=== PATIENT | male | born 1990 | race Caucasian/White ===

== ENCOUNTER → 2016-11-22 | Outpatient (CLI) | payer OTHER ==
[2016-11-22 18:27] LABS: BASO % 0.8 %; BASO ABS # 0.08 K/uL (0-0.2); COMPLETE YES; EOS % 21.3 %; HEMATOCRIT 46.1 % (42-52); IG% 0.1 %; LYMPH % 20.6 %; LYMPH ABS # 1.98 K/uL (1.2-3.4); MEAN CELL VOLUME 94.5 fL (80-100); MEAN CORPUSCULAR HEMOGLOBIN 32.8 pg (25-34); MEAN CORPUSCULAR HGB CONC 34.7 g/dl (32-36); MEAN PLATELET VOLUME 10.4 fL (7.4-10.4); NEUT % 49.2 %; PLATELET COUNT 250 K/uL (130-400); RED BLOOD COUNT 4.88 M/uL (4.7-6.1)
[2016-11-22 19:04] LABS: ALB/GLOB RATIO 1.3 (0.9-2); ALKALINE PHOSPHATASE 85 U/L (45-117); ALT/SGPT 41 U/L (12-78); AMYLASE 95 U/L (25-115); AST/SGOT 26 U/L (15-37); BLOOD UREA NITROGEN 35 mg/dl (7-18); BUN/CREATININE RATIO 29.3 (10-20); CARBON DIOXIDE 29 mmol/L (21-32); CHLORIDE 103 mmol/L (98-107); GLUCOSE 73 mg/dl (70-99); POTASSIUM 4.1 mmol/L (3.5-5.1); SODIUM 140 mmol/L (136-145)
== END | disposition home or self-care (01) ==
LOC: C.LABSPEC 15:00
PROVIDERS: ATTEND Internal Medicine
DX: R10.13 Epigastric pain (principal)

== ENCOUNTER 2017-10-04 16:06 | Emergency (ER) | payer OTHER ==
[~2017-10-04] VITALS: Ht 182.9 cm; Wt 89.2 kg
[2017-10-04 16:10] VITALS: TEMP 36.3; Ht 182.9 cm; Wt 89.2 kg
[2017-10-04 16:22] VITALS: O2SAT 97
[2017-10-04] MEDS ORDERED: DiphenhydrAMINE HCL 50 MG/ML VIAL IV STA (16:38)
[2017-10-04] MEDS ORDERED: FAMOTIDINE 20MG/5ML IV PUSH IV STA (16:38)
[2017-10-04] MEDS ORDERED: SODIUM CHLORIDE 0.9% 1000ML 1,000 ML IV STA ×2 (16:38→17:39)
[2017-10-04] MEDS ORDERED: MULT-506 PO (16:54)
[2017-10-04 16:55] LABS: BASO % 0.4 %; BASO ABS # 0.08 K/uL (0-0.2); EOS % 2.1 %; EOS ABS # 0.42 K/uL (0-0.5); HEMATOCRIT 47.3 % (42-52); HEMOGLOBIN 16.2 g/dL (14.0-18.0); IG# 0.05 K/uL (0.00-0.02); LYMPH ABS # 2.86 K/uL (1.2-3.4); MEAN CELL VOLUME 96.9 fL (80-100); MEAN CORPUSCULAR HEMOGLOBIN 33.2 pg (25-34); MEAN CORPUSCULAR HGB CONC 34.2 g/dl (32-36); MEAN PLATELET VOLUME 10.2 fL (7.4-10.4); MONO % 7.5 %; MONO ABS # 1.54 K/uL (0.11-0.59); NEUT % 75.8 %; NEUT ABS # 15.49 K/uL (1.4-6.5); PLATELET COUNT 271 K/uL (130-400); RED CELL DISTRIBUTION WIDTH CV 13.6 % (11.5-14.5); RED CELL DISTRIBUTION WIDTH SD 48.5 fL (36.4-46.3); WHITE BLOOD COUNT 20.44 K/uL (4.8-10.8)
[2017-10-04 17:02] LABS: CALCIUM 8.8 mg/dl (8.5-10.1); CREATININE 1.27 mg/dl (0.60-1.40); POTASSIUM 3.8 mmol/L (3.5-5.1)
--- NOTE | 2017-10-04 17:05 | DIAGNOSTIC IMAGING REPORT ---
CHEST 2 VIEWS ROUTINE CLINICAL HISTORY: chest tightness, allergic reaction COMPARISON STUDY: No previous studies for comparison. FINDINGS: The cardiac and mediastinal contours are normal. There is no evidence of focal pulmonary consolidation. There is no evidence of failure. No pleural effusions are visualized.[ IMPRESSION: No active disease in the chest. Electronically signed by: Joshua Camacho M.D. 10/04/2017 5:04 PM Dictated Date/Time: 10/04/2017 5:03 PM
--- NOTE | 2017-10-04 17:11 | EMERGENCY ROOM VISIT NOTE ---
ED Visit Note First contact with patient: 16:19 CHIEF COMPLAINT: Allergic reaction HISTORY OF PRESENTING ILLNESS: This is a 27-year-old male who presents to the emergency department with complaint of an allergic reaction today. Patient states that he went for a 9 mile run earlier today outside, states he felt fine during the run and immediately after the run. He states while he was driving home that he started to feel some tightness in his chest. When he got home, he vomited 1 and the tightness in his chest resolved. He states that his vomit looked black with bits of food in it. He does note that he ate a hamburger late last night. He states that after he got out of the shower, he noticed hives all over his chest. He reports a bad allergic reaction with hives in the past, for which he was given an Epi-Pen, and he felt this reaction was similar, so he gave himself his EpiPen injection. He states that his heart was racing and he felt nauseated afterward, but his hives have not improved. He denies any symptoms of facial or lip swelling, tongue swelling, tightness in his throat , difficulty breathing, wheezing, dizziness or syncope. He currently denies any chest pain or SOB, and states "I pretty much feel back to normal, but I wanted to get checked out." He denies any new foods, lotions, detergents, medications, or other exposures. REVIEW OF SYSTEMS: A complete 10 point review of systems was reviewed with the patient with pertinent positives and negatives as per history of present illness. All else were negative. PAST MEDICAL HISTORY: No significant past medical or surgical history. UTD on immunizations. SOCIAL HISTORY: Lives at home. Denies tobacco use, reports occasional alcohol use, denies illicit drug use. ALLERGIES: No known allergies. PHYSICAL EXAM: CONSTITUTIONAL: Pleasant and cooperative. No acute distress. Well appearing and well nourished. HEENT: Normocephalic, atraumatic. PERRL, EOMI, normal conjunctiva bilaterally. TMs normal. No facial or lip swelling. No tongue swelling. Pharynx normal, no pharyngeal edema. Patent airway. Moist mucous membranes. NECK: Supple, full active range of motion without discomfort. No cervical adenopathy. RESPIRATORY: Clear to auscultation bilaterally with no wheezing, crackles, rhonchi or stridor. Equal expansion bilaterally. CARDIOVASCULAR: Regular rate and rhythm with no murmurs, rubs or gallops. Normal peripheral perfusion. No edema. GASTROINTESTINAL: Soft, nontender, nondistended. No palpable masses or HSM. Bowel sounds present in all quadrants. MUSCULOSKELETAL: Full range of motion of all joints without discomfort. INTEGUMENTARY: There is a red rash on the anterior chest and abdomen, some lesions appear urticarial, some appear more consistent with insect bite. Nontender to palpation. Blanching. No pustules or discharge noted. No other significant dermatologic conditions noted. NEUROLOGIC: Alert and oriented X 4 with normal affect. Cranial nerves II-XII grossly intact. No focal neurologic deficits noted. Normal strength and sensation in all 4 extremities. Normal speech. Normal gait observed. ED COURSE AND MEDICAL DECISION MAKING: CC: Patient presenting with complaint of allergic reaction DIFFERENTIAL DIAGNOSIS: Includes, but not limited to allergic reaction, insect bites, rash, folliculitis, gastroenteritis, gastritis, peptic ulcer disease, GERD, among others. INTERPRETATION OF LABS: Leukocytosis with left shift, no anemia, no significant electrolyte abnormalities, normal renal function. IMAGING: CHEST 2 VIEWS ROUTINE CLINICAL HISTORY: chest tightness, allergic reaction COMPARISON STUDY: No previous studies for comparison. FINDINGS: The cardiac and mediastinal contours are normal. There is no evidence of focal pulmonary consolidation. There is no evidence of failure. No pleural effusions are visualized. IMPRESSION: No active disease in the chest. EKG: Shows normal sinus rhythm with sinus arrhythmia, no acute ischemic changes by my interpretation. No previous EKGs available for comparison. MEDICATION RECONCILIATION: I attest that I have personally reviewed the patient 's current medication list. INITIAL VITAL SIGNS REVIEW: I reviewed the patient's initial vital signs and interpret them as follows: T: Afebrile; BP: Normotensive; HR: Within normal limits; RR: Tachypneic; Pulse Ox: Within normal limits on room air. Blood pressure screening: The patient was found to have normal blood pressure on screening and does not require follow-up for repeat blood pressure check. SUMMARY: Patient was evaluated at bedside, history and physical exam performed. Patient is alert and oriented, in no acute distress and with no complaints, resting calmly in the stretcher. Patient is noted to have red rash on chest, multiple lesions appear consistent with insect bites. EKG reviewed at bedside, showing sinus rhythm with no acute ischemic changes. Orders were placed at bedside for labs, IV fluid bolus, IV Benadryl and Pepcid, and chest x-ray to evaluate for cardiopulmonary disease. Patient discussed with Dr. Greene, who agrees with my assessment and plan. Labs and imaging reviewed as above, notable for marketed leukocytosis, which I suspect may be secondary to stress response given the injection of epinephrine. I discussed findings with Dr. Greene, he recommended aggressively hydrating the patient with a second liter of normal saline, and repeat the CBC. On recheck, CBC shows significant improvement in leukocytosis after hydration. Patient reassessed multiple times throughout ED stay, he continues to feel well. The rash on his chest and abdomen appears to be improved after receiving the Benadryl and Pepcid. He has not had any further nausea or vomiting and is tolerating oral fluids without difficulty. Patient was updated on all results and plan for discharge, he was encouraged to follow closely with his primary care provider for further evaluation. The patient was provided with education regarding the appropriate use of the EpiPen, and cautioned against using this inappropriately. Patient was also given strict return precautions should his symptoms worsen, he verbalized understanding. Patient was discharged home in stable condition and ambulatory. Current/Historical Medications Scheduled Multivitamin (Multivitamin), 1 TAB PO DAILY Allergies Coded Allergies: No Known Allergies (Unverified , 10/04/17) Vital Signs Date Time Temp Pulse Resp B/P (MAP) Pulse Ox O2 Delivery O2 Flow Rate FiO2 10/04/17 20:05 70 16 120/61 98 10/04/17 17:39 66 16 111/59 98 Room Air 10/04/17 16:35 81 10/04/17 16:31 99 Room Air 10/04/17 16:22 97 Room Air 10/04/17 16:10 36.3 87 22 135/80 98 Room Air Laboratory Results 10/04/17 18:53 10/04/17 16:25 Test 10/04/17 16:25 10/04/17 18:53 Immature Granulocyte % (Auto) 0.2 % White Blood Count 20.44 K/uL (4.8-10.8) Red Blood Count 4.88 M/uL (4.7-6.1) 4.41 M/uL (4.7-6.1) Hemoglobin 16.2 g/dL (14.0-18.0) Hematocrit 47.3 % (42-52) Mean Corpuscular Volume 96.9 fL (80-100) 96.6 fL (80-100) Mean Corpuscular Hemoglobin 33.2 pg (25-34) 32.9 pg (25-34) Mean Corpuscular Hemoglobin Concent 34.2 g/dl (32-36) 34.0 g/dl (32-36) Platelet Count 271 K/uL (130-400) Mean Platelet Volume 10.2 fL (7.4-10.4) 10.1 fL (7.4-10.4) Neutrophils (%) (Auto) 75.8 % Lymphocytes (%) (Auto) 14.0 % Monocytes (%) (Auto) 7.5 % Eosinophils (%) (Auto) 2.1 % Basophils (%) (Auto) 0.4 % Neutrophils # (Auto) 15.49 K/uL (1.4-6.5) Lymphocytes # (Auto) 2.86 K/uL (1.2-3.4) Monocytes # (Auto) 1.54 K/uL (0.11-0.59) Eosinophils # (Auto) 0.42 K/uL (0-0.5) Basophils # (Auto) 0.08 K/uL (0-0.2) Immature Granulocyte # (Auto) 0.05 K/uL (0.00-0.02) Anion Gap 10.0 mmol/L (3-11) Est Creatinine Clear Calc Drug Dose 96.8 ml/min Estimated GFR () 89.8 Estimated GFR (Non- 77.5 BUN/Creatinine Ratio 30.8 (10-20) Calcium Level 8.8 mg/dl (8.5-10.1) RDW Standard Deviation 47.6 fL (36.4-46.3) RDW Coefficient of Variation 13.5 % (11.5-14.5) Medications Administered Medications (Trade) Dose Ordered Sig/Bhavana Route Start Time Stop Time Status Last Admin Dose Admin Sodium Chloride 1,000 ml @ 999 mls/hr Q1H1M STAT IV 10/04/17 16:38 10/04/17 17:38 DC 10/04/17 16:48 999 MLS/HR Diphenhydramine HCl (Benadryl Inj) 50 mg NOW STAT IV 10/04/17 16:38 10/04/17 16:40 DC 10/04/17 16:48 50 MG Famotidine (Pepcid 20mg Iv Push) 20 mg ONE STAT IV 10/04/17 16:38 10/04/17 16:40 DC 10/04/17 16:48 20 MG Sodium Chloride 1,000 ml @ 999 mls/hr Q1H1M STAT IV 10/04/17 17:39 10/04/17 18:39 DC 10/04/17 17:39 999 MLS/HR Departure Information Impression Primary Impression: Rash Additional Impression: Allergic reaction Dispostion Home / Self-Care Condition GOOD Referrals Luis Miguel Lam M.D. (PCP) Patient Instructions ED Allergic Reaction General Other, EpiPen Auto Injector Dc, [facility] Additional Instructions You have been treated in the Emergency Department for your rash and monitored after using your EpiPen. You may take Benadryl (diphenhydramine) 25-50 mg orally every 4-6 hours as needed for itching. This medication is [id number] and you will NOT need a prescription to purchase this at your local pharmacy. You may also apply topical hydrocortisone cream to the rash twice a day for severe itching. As with every Emergency Department visit, you should follow-up with your primary care provider in 2-3 days for reevaluation. Return to the Emergency Department for any worsening symptoms, including pain/ redness/swelling of the rash, pus drainage, fevers/chills, or other signs of skin infection, or if you have chest pain, shortness of breath, wheezing, tongue or face swelling, tightness in your throat, or fainting. Work Instructions Return To Work: 1 day Problem Qualifiers Additional Impression: Allergic reaction Encounter type: initial encounter Qualified Codes: T78.40XA - Allergy, unspecified, initial encounter
[2017-10-04 19:06] LABS: HEMATOCRIT 42.6 % (42-52); HEMOGLOBIN 14.5 g/dL (14.0-18.0); MEAN CELL VOLUME 96.6 fL (80-100); MEAN CORPUSCULAR HEMOGLOBIN 32.9 pg (25-34); MEAN PLATELET VOLUME 10.1 fL (7.4-10.4); PLATELET COUNT 208 K/uL (130-400); RED CELL DISTRIBUTION WIDTH CV 13.5 % (11.5-14.5); RED CELL DISTRIBUTION WIDTH SD 47.6 fL (36.4-46.3); WHITE BLOOD COUNT 12.93 K/uL (4.8-10.8)
[2017-10-04 20:05] VITALS: BP 120/61; PULSE 70; O2SAT 98
== END 2017-10-04 20:05 | disposition home or self-care (01) ==
LOC: C.EDB 16:08
DX: R21 Rash and other nonspecific skin eruption (principal); T78.40XA Allergy, unspecified, initial encounter; X58.XXXA Exposure to other specified factors, initial encounter; Y93.02 Activity, running